=== PATIENT | male | born 1975 | race African-American/Black ===

== ENCOUNTER 2018-01-21 13:08 | Emergency (ER) | payer SELFPAY ==
[~2018-01-21] VITALS: Ht 160 cm; Wt 81.6 kg
[2018-01-21 13:08] VITALS: BP 132/69
--- NOTE | 2018-01-21 13:25 | PHYS DOC ---
Adult General Chief Complaint Chief Complaint: BACK PAIN OR INJURY HPI HPI Patient is a 42 year old male who presents with chronic low back pain. Patient is brought to the emergency department after being arrested by the police. Patient was running from the police when he was apprehended. Reportedly , there was no significant struggle. The patient was ambulatory without difficulty to the police car. The patient complains only of chronic low back and left knee pain. The patient states he normally takes 7.5 mg Percocet for his pain every day. Patient states his pain is worse today since he got arrested. He is requesting a refill of his Percocet. He does not endorse any new problems today. He has no new complaints. He has no fever or chills, shortness of breath, chest pain. He denies that he sustained new or acute injury to his knee or his back. Review of Systems Review of Systems Constitutional: Denies fever or chills Eyes: Denies change in visual acuity HENT: Denies nasal congestion Respiratory: Denies cough or shortness of breath Cardiovascular: No additional information GI: Denies abdominal pain : Denies dysuria Musculoskeletal: Denies back pain Integument: Denies rash or skin lesions Neurologic: Denies headache All other systems were reviewed and found to be within normal limits, except as documented in this note. Current Medications Current Medications Current Medications Medications (Trade) Dose Ordered Sig/Aj Start Time Stop Time Status Last Admin Dose Admin Oxycodone/ Acetaminophen (Percocet 5/325) 1 tab 1X ONCE 01/21/18 13:30 01/21/18 13:31 DC 01/21/18 13:29 1 TAB Allergies Allergies Allergies Coded Allergies Type Severity Reaction Last Updated Verified No Known Drug Allergies 01/21/18 No Physical Exam Physical Exam Constitutional: Well developed, well nourished, no acute distress, non-toxic appearance HENT: Normocephalic, atraumatic, bilateral external ears normal, oropharynx moist Eyes: EOMI, conjunctiva normal Neck: Normal range of motion Cardiovascular:Heart rate regular rhythm Lungs & Thorax: Bilateral breath sounds clear to auscultation Skin: Warm, dry, no erythema Back: Normal ROM Extremities: No tenderness, no edema, no trauma Neurologic: Alert and oriented X 3 Psychologic: Patient is agitated intermittently and uncooperative with nursing staff. Current Patient Data Vital Signs Vital Signs Date Time Temp Pulse Resp B/P (MAP) Pulse Ox O2 Delivery O2 Flow Rate FiO2 01/21/18 13:29 18 98 Room Air 01/21/18 13:08 98.5 110 132/69 (90) 98.5 EKG EKG [] Radiology/Procedures Radiology/Procedures [] Course & Med Decision Making Course & Med Decision Making Pertinent Labs and Imaging studies reviewed. (See chart for details) Patient is evaluated in the emergency department. He has no acute complaints. He presents to the ER in police custody simply to request a refill of his opiate medication prescription which she takes chronically. He is advised that we do not refill opiate prescriptions in the emergency department. I did offer him a single dose of his pain medication which he accepted. Following this, the patient was discharged to police custody. Dragon Disclaimer Dragon Disclaimer This electronic medical record was generated, in whole or in part, using a voice recognition dictation system. Departure Departure Impression: Primary Impression: Chronic back pain Disposition: 01 HOME, SELF-CARE Condition: GOOD Patient Instructions: Back Pain, Adult AZUL DOLAN DO Jan 21, 2018 13:25
[2018-01-21] MEDS ORDERED: oxyCODONE/APAP 5/325 1 TAB TABLET PO ONE (13:30)
== END 2018-01-21 13:33 | disposition home or self-care (01) ==
LOC: ER 13:08
DX: G89.29 Other chronic pain (principal); M54.5 Low back pain; M25.562 Pain in left knee
CPT/HCPCS: 99283